=== PATIENT | male | born 1985 | race Caucasian/White ===

== ENCOUNTER 2017-10-26 11:51 | Emergency (ER) | payer BC ==
[~2017-10-26] VITALS: Ht 177.8 cm; Wt 86.2 kg
[2017-10-26 11:54] VITALS: Ht 177.8 cm; Wt 86.2 kg
[2017-10-26 12:48] LABS: CALCIUM 8.9 mg/dL (8.5-10.1); CARBON DIOXIDE 25.5 mmol/L (21-32); CHLORIDE SERUM 97 mmol/L (98-107); CREATININE SERUM 1.1 mg/dL (0.7-1.3); GFR1 > 60 mL/min; GLUCOSE SERUM 147 mg/dL (74-106); POTASSIUM SERUM 4.5 mmol/L (3.5-5.1); SODIUM SERUM 135 mmol/L (136-145)
[2017-10-26 13:30] VITALS: BP 152/87
== END 2017-10-26 13:30 | disposition home or self-care (01) ==
LOC: ED 11:51
PROVIDERS: Emergency Medicine
DX: R56.9 Unspecified convulsions (principal)

== ENCOUNTER 2018-10-31 13:24 | Emergency (ER) | payer BC ==
[~2018-10-31] VITALS: Ht 180.3 cm; Wt 95.3 kg
[2018-10-31 13:42] VITALS: Ht 180.3 cm; Wt 95.3 kg
[2018-10-31 16:14] LABS: microscopic required? NO
[2018-10-31 16:25] LABS: UA SPECIFIC GRAVITY 1.015 (1.005-1.035); urine erythrocyte NEGATIVE (NEGATIVE)
[2018-10-31 16:51] VITALS: BP 139/90
== END 2018-10-31 16:51 | disposition home or self-care (01) ==
LOC: ED 13:24
PROVIDERS: Emergency Medicine
DX: N50.812 Left testicular pain (principal)
CPT/HCPCS: Q0092